=== PATIENT | female | born 1940 | race Caucasian/White ===

== ENCOUNTER 2021-07-30 09:00 | Observation (INO) | payer MEDICARE, MEDICAID ==
[~2021-07-30] VITALS: Wt 63.1 kg
[2021-07-30 10:42] LABS: BASO # 0.02 K/mm3 (0.02-0.10); EOS # 0.21 K/mm3 (0.04-0.40); EOS % 1.7 % (1.0-5.0); HEMATOCRIT 36.2 % (37.0-47.0); HEMOGLOBIN 11.9 g/dL (12.5-16.0); LYMPH# 1.64 K/mm3 (1.50-4.00); MEAN CELL VOLUME 91 fl (78-100); MEAN CORPUSCULAR HEMOGLOBIN 30 pg (27-31); MEAN CORPUSCULAR HGB CONC 33 g/dL (33-37); MEAN PLATELET VOLUME 10.3 fl (7.4-10.4); NEU # 9.19 K/mm3 (1.40-6.50); PLATELET COUNT 357 K/mm3 (130-400); RED BLOOD COUNT 3.98 M/mm3 (4.10-5.30); RED CELL DISTRIBUTION WIDTH 13.8 % (11.5-14.5); WHITE BLOOD COUNT 12.1 K/mm3 (4.8-10.8)
[2021-07-30 10:46] LABS: ALBUMIN 3.5 g/dL (3.4-4.8)
[2021-07-30 10:47] LABS: POTASSIUM 3.5 mmol/L (3.5-5.1)
[2021-07-30 10:48] LABS: CALCIUM 9.4 mg/dL (8.3-10.5)
[2021-07-30 10:49] LABS: TOTAL PROTEIN 7.7 g/dL (6.2-8.1)
[2021-07-30 10:51] LABS: TOTAL BILIRUBIN 0.7 mg/dL (0.2-1.2)
[2021-07-30 11:18] LABS: URINE APPEARANCE HAZY; URINE BILIRUBIN NEGATIVE (NEGATIVE); URINE BLOOD TRACE (NEGATIVE); URINE COLOR YELLOW; URINE GLUCOSE NEGATIVE (NEGATIVE); URINE KETONE 1+ (NEGATIVE); URINE LEUKOCYTE ESTERASE TRACE (NEGATIVE); URINE NITRATE NEGATIVE (NEGATIVE); URINE PROTEIN(semi-quant) 1+ (NEGATIVE); URINE UROBILINOGEN NORMAL (NORMAL)
[2021-07-30 11:19] LABS: URINE MUCUS PRESENT (NOT PRESENT)
[2021-07-30] MEDS ORDERED: LYMEPAK100 MG PO (15:37)
[2021-07-30] MEDS ORDERED: ATORVASTATIN CA10 MG PO (15:37)
[2021-07-30] MEDS ORDERED: ONDANSETRON HYDR8 MG PO (15:37)
[2021-07-30] MEDS ORDERED: MAXZIDE-25MG TA1 TAB PO (15:39)
[2021-07-30] MEDS ORDERED: IRBESARTAN300 MG PO (15:39)
[2021-07-30] MEDS ORDERED: METHIMAZOLE10 M1 PO (15:40)
[2021-07-30] MEDS ORDERED: PRILOSEC 20MG20 MG PO (15:40)
--- NOTE | 2021-07-30 19:46 | NUR ---
FROM ER TO ROOM 202 PER W/C FOR OBSERVATION ADMIT. STILL HAVING SOME NAUSEA, ALTHOUGH THIS MAY BE MORE OF A FOOD/LIQUID AVERSION. STATES "EVEN WATER ISN'T GOOD." STILL HAS NOT REGAINED SENSE OF TASTE FROM SINCE COVID DX IN JUNE 2021. REPORTS PAIN TO MID BACK; RATES 8/10. WILL GIVE TYLENOL. ALSO DISCUSS USE OF K-PAD FOR PAIN RELIEF. LIVES AT HOME ALONE. RECEIVES HOME HEALTH SERVICES FROM ON LICENSE OF [facility]. REPORTS BEING INDEPENDENT WITHIN HER HOME AT BASELINE. USES WALKER PRN. DOES RECEIVE MEALS ON WHEELS. SHIFT REPORT, WHILE PATIENT WAS IN ER, REPORTED A SKIN TEAR TO UPPER BACK FROM SKIN BEING CAUGHT UP IN HOOKS TO BRA. PATIENT ALSO STILL HAD TELE AND EKG STICKERS ON BODY FROM PREVIOUS HOSPITAL; SHE WAS DISCHARGED 07/22/21. FAMILY IS NEARBY AND DAUGHTER REPORTS HER OR A GRANDCHILD HAS BEEN STAYING THE NIGHT IN THE HOME SINCE HER HOSPITALIZATION.
[2021-07-30 20:01] VITALS: BP 130/71
--- NOTE | 2021-07-31 01:26 | NUR ---
RESTING IN BED, ON RT SIDE. SNORING NOTED. APPEARS IN NO DISTRESS.
[2021-07-31 06:10] VITALS: BP 135/63
[2021-07-31 07:19] LABS: BASO # 0.01 K/mm3 (0.02-0.10); EOS # 0.21 K/mm3 (0.04-0.40); EOS % 2.6 % (1.0-5.0); HEMATOCRIT 30.7 % (37.0-47.0); HEMOGLOBIN 10.1 g/dL (12.5-16.0); LYMPH# 1.46 K/mm3 (1.50-4.00); MEAN CELL VOLUME 91 fl (78-100); MEAN CORPUSCULAR HEMOGLOBIN 30 pg (27-31); MEAN CORPUSCULAR HGB CONC 33 g/dL (33-37); MEAN PLATELET VOLUME 10.1 fl (7.4-10.4); MONO # 0.79 K/mm3 (0.20-0.80); NEU # 5.73 K/mm3 (1.40-6.50); PLATELET COUNT 279 K/mm3 (130-400); RED BLOOD COUNT 3.39 M/mm3 (4.10-5.30); RED CELL DISTRIBUTION WIDTH 13.6 % (11.5-14.5); WHITE BLOOD COUNT 8.2 K/mm3 (4.8-10.8)
[2021-07-31 07:30] LABS: ALBUMIN 2.8 g/dL (3.4-4.8); POTASSIUM 3.3 mmol/L (3.5-5.1)
[2021-07-31 07:32] LABS: CALCIUM 7.8 mg/dL (8.3-10.5)
[2021-07-31 07:35] LABS: TOTAL BILIRUBIN 0.5 mg/dL (0.2-1.2)
--- NOTE | 2021-07-31 08:01 | NUR ---
Patient resting in bed. A&Ox3, disoriented to time. No c/o pain or discomfort. Reports she slept well last night and is eager to go home today. Pleasant with staff. Straight cath, UA complete. 1 assist with pericares and clean breif. SBA assist from bed to chair. Chair in locked position. Chair alarm on. Call light within reach.
[2021-07-31 09:33] VITALS: BP 132/61
[2021-07-31 13:42] VITALS: BP 148/68
[2021-07-31 13:53] LABS: URINE APPEARANCE CLEAR; URINE BILIRUBIN NEGATIVE (NEGATIVE); URINE BLOOD NEGATIVE (NEGATIVE); URINE COLOR YELLOW; URINE GLUCOSE NEGATIVE (NEGATIVE); URINE KETONE NEGATIVE (NEGATIVE); URINE LEUKOCYTE ESTERASE NEGATIVE (NEGATIVE); URINE NITRATE NEGATIVE (NEGATIVE); URINE PROTEIN(semi-quant) 1+ (NEGATIVE); URINE UROBILINOGEN NORMAL (NORMAL)
--- NOTE | 2021-07-31 16:56 | NUR ---
Pt is still receiving HH services thru [facility] prior to this stay. H & P faxed to [facility] at [phone] per Nurse request.
--- NOTE | 2021-07-31 17:00 | NUR ---
This nurse spoke w/ pt's daughter, Emmy ([phone]) regarding the SS consult and plan for discharge. Emmy had some questions regarding hospital plan for her mom and update given. Discussed their current plan in caring for her mom and Emmy reports that she and her daughters have been taking turns spending the night with the pt and they can continue that practice upon her discharge from hospital. They are pleased with [facility] services but would like to add a bathaide to the Home health services upon discharge. Daughter reported that she would be happy to have her mom stay with her but pt does not "like her " and it wouldn't work. She would like to keep pt close (i.e. [facility] if possible) if she needs lobsterman care needs in the future. Assisted living would be a nice option but [facility] does not offer assisted living options at this time. Emmy stated that she is hoping her mom gets a clearer mind as she wants Priyanka to make the decision on whether she wants to go to the half-way. Emmy does not want to make that decision herself at this time. Emmy is aware that pt may be discharged tomorrow and they can still check on her mom during the day and stay with her at night at this time.
--- NOTE | 2021-07-31 17:30 | NUR ---
Report received from Ekaterina ADAMSON. Patient sitting up in recliner, finished supper. Patient is A/O to self, , place and Month not year. States has H/A and nausea. Rates H/A 03/07. NS infusing via pump at 100 ML/HR. Site patent to R AC. Tylenol and Zofran given PO at this time. Assessment completed.
[2021-07-31 17:56] VITALS: BP 128/58
--- NOTE | 2021-07-31 18:53 | NUR ---
Rests in bed. Reports relief of H/A with Tylenol and nausea with Zofran. Bed alarm on. Call light in reach.
[2021-07-31 22:31] VITALS: BP 122/68
--- NOTE | 2021-08-01 00:03 | NUR ---
Sleeping, no signs of pain or distress. Up to BR PRN to void. IVF continue NS at 100 ML/HR.
--- NOTE | 2021-08-01 02:18 | NUR ---
Sleeps soundly, snoring loud. No signs of pain or distress. Bed alarm on. Call light in reach.
--- NOTE | 2021-08-01 02:54 | NUR ---
IV site to R AC leaking. IV DC'd, cath intact. New INT #20 inserted in LAC. Fluids restarted. NS at 100 ML/HR. Denies pain.
--- NOTE | 2021-08-01 04:29 | NUR ---
Patient had a coughing spell. Lungs remain CTA. HOB elevated and offered drink of water. Continue to monitor.
--- NOTE | 2021-08-01 06:00 | NUR ---
PO medication taken. No further coughing spells. IVF infusing at 100 ML/HR. Denies pain.
[2021-08-01 06:16] VITALS: BP 146/73
[2021-08-01 07:00] LABS: EOS # 0.13 K/mm3 (0.04-0.40); EOS % 2.4 % (1.0-5.0); HEMOGLOBIN 9.7 g/dL (12.5-16.0); LYMPH# 1.13 K/mm3 (1.50-4.00); MEAN CELL VOLUME 92 fl (78-100); MEAN CORPUSCULAR HEMOGLOBIN 30 pg (27-31); MEAN CORPUSCULAR HGB CONC 32 g/dL (33-37); MEAN PLATELET VOLUME 10.6 fl (7.4-10.4); MONO # 0.38 K/mm3 (0.20-0.80); NEU # 3.84 K/mm3 (1.40-6.50); PLATELET COUNT 306 K/mm3 (130-400); RED BLOOD COUNT 3.28 M/mm3 (4.10-5.30); RED CELL DISTRIBUTION WIDTH 13.8 % (11.5-14.5); WHITE BLOOD COUNT 5.5 K/mm3 (4.8-10.8)
--- NOTE | 2021-08-01 07:00 | NUR ---
REPORT RECEIVED FROM GUEVARA WYNN. PATIENT CURRENTLY RESTING IN BED WITH EYES CLOSED. CALL LIGHT WITHIN REACH.
--- NOTE | 2021-08-01 07:10 | NUR ---
[facility]
[2021-08-01 07:12] LABS: POTASSIUM 3.7 mmol/L (3.5-5.1)
[2021-08-01 07:13] LABS: ALBUMIN 2.8 g/dL (3.4-4.8)
[2021-08-01 07:14] LABS: CALCIUM 7.9 mg/dL (8.3-10.5)
[2021-08-01 07:15] LABS: TOTAL PROTEIN 5.9 g/dL (6.2-8.1)
[2021-08-01 07:17] LABS: TOTAL BILIRUBIN 0.3 mg/dL (0.2-1.2)
[2021-08-01 10:10] VITALS: BP 135/76
--- NOTE | 2021-08-01 13:00 | NUR ---
PATIENT PLEASENT AND COOPERATIVE WITH CARES. OFFERS NO NEEDS OR COMPLAINTS AT THIS TIME. PATIENT LYING IN BED WATCHING TV. BED IN LOWEST LOCKED POSTION. CALL LIGHT WITHIN REACH.
[2021-08-01 14:15] VITALS: BP 163/83
--- NOTE | 2021-08-01 14:45 | NUR ---
Called [facility] to find dates of admission of MEMO
--- NOTE | 2021-08-01 14:59 | NUR ---
Pt was admitted for acute care stay with covid on 07/21/21 discharged on 07/22/21. Not enough days for SNF.
--- NOTE | 2021-08-01 16:00 | NUR ---
ORDERS RECEIVED TO DISCONTINUE FLUIDS AND PUT PATIENT ON REGULAR DIET. PATIENT VERBILIZED UNDERSTANDING.
[2021-08-01 18:10] VITALS: BP 163/66
--- NOTE | 2021-08-01 19:00 | NUR ---
REPORT GIVEN TO GUEVARA WYNN.
[2021-08-01 21:27] VITALS: BP 174/77
--- NOTE | 2021-08-02 00:10 | NUR ---
Sets off bed alarm. Staff in room. Sitting on EOB, ambulated to BR with SBA, gait steady. Voids and assisted back to bed. Denies pain. Reminded to call for assist, patient states "I was only going to the bathroom. ". Bed alarm on. Call light in reach.
--- NOTE | 2021-08-02 00:15 | NUR ---
Report received from Mayela WATERMAN. Patient resting in bed on R side. Awakens easily for PM Shift assessment. A/O x4 but does exhibit some intermittent confusion. Does not ring call light before attempting to get out of bed despite several reminders from staff. INT patent to L AC. Denies pain. Denies SOB. Has occasional NPC. Lungs CTA. Gait steady with SBA/walker. No edema noted. HS medications taken whole without difficulty. Bed alarm on. Call light in reach.
--- NOTE | 2021-08-02 04:08 | NUR ---
Resting well. Rang to go to BR. NOVELTY WORKER in to assist. Gait steady. Denies pain.
[2021-08-02 06:06] LABS: BASO # 0.02 K/mm3 (0.02-0.10); EOS # 0.25 K/mm3 (0.04-0.40); EOS % 3.5 % (1.0-5.0); HEMATOCRIT 29.8 % (37.0-47.0); HEMOGLOBIN 9.7 g/dL (12.5-16.0); LYMPH# 2.15 K/mm3 (1.50-4.00); MEAN CELL VOLUME 91 fl (78-100); MEAN CORPUSCULAR HEMOGLOBIN 30 pg (27-31); MEAN CORPUSCULAR HGB CONC 33 g/dL (33-37); MEAN PLATELET VOLUME 10.2 fl (7.4-10.4); MONO # 0.58 K/mm3 (0.20-0.80); NEU # 4.17 K/mm3 (1.40-6.50); PLATELET COUNT 320 K/mm3 (130-400); RED BLOOD COUNT 3.26 M/mm3 (4.10-5.30); RED CELL DISTRIBUTION WIDTH 13.9 % (11.5-14.5); WHITE BLOOD COUNT 7.2 K/mm3 (4.8-10.8)
[2021-08-02 06:12] LABS: ALBUMIN 2.8 g/dL (3.4-4.8)
[2021-08-02 06:13] LABS: POTASSIUM 3.5 mmol/L (3.5-5.1)
[2021-08-02 06:17] LABS: TOTAL BILIRUBIN 0.3 mg/dL (0.2-1.2)
[2021-08-02 06:27] VITALS: BP 176/72
--- NOTE | 2021-08-02 07:20 | NUR ---
Report to Tiesha ADAMSON.
--- NOTE | 2021-08-02 08:48 | NUR ---
Pt ate all of breakfast. Tolerated well. Denies any pain. Denies any SOB. Reports she is ready to go home. Wade Parikh in to see patient and discuss discharge plan
[2021-08-02] MEDS ORDERED: LYMEPAK100 MG PO (09:03)
[2021-08-02 09:31] VITALS: BP 165/68
--- NOTE | 2021-08-02 10:33 | NUR ---
Faxed information to [facility]. D/C instruction, sumary, and face to face
--- NOTE | 2021-08-02 11:04 | NUR ---
Patient discharges at this time with daughter. All discharge instructions have been reviewed and questions answered. Pt belongings sent with patient
== END 2021-08-02 11:04 | disposition home health service (06) ==
LOC: ED 09:00 → MED/SURG 19:29
PROVIDERS: Family Medicine; Physician Assistant; ADMIT Family Medicine
DX: R41.82 Altered mental status, unspecified (principal); R74.8 Abnormal levels of other serum enzymes; J18.9 Pneumonia, unspecified organism; U09.9 Post COVID-19 condition, unspecified; D64.9 Anemia, unspecified; E87.6 Hypokalemia; N17.9 Acute kidney failure, unspecified; E03.9 Hypothyroidism, unspecified; I10 Essential (primary) hypertension; Z79.899 Other long term (current) drug therapy
CPT/HCPCS: G0378; J1650; J1885; J2405; J3480; J7030; Q9967